=== PATIENT | male | born 2000 | race African-American/Black ===

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

== ENCOUNTER 2020-08-14 12:05 | Emergency (ER) | payer OTHER ==
[~2020-08-14] VITALS: Ht 185.4 cm; Wt 66.0 kg
--- NOTE | 2020-08-14 12:22 | PHYS DOC ---
Past Medical History Past Medical History: Kidney Stone Additional Past Medical Histor: kidney stones Past Surgical History: Other Additional Past Surgical Histo: "KIDNEY STONE SX" Smoking Status: Never Smoker Alcohol Use: None Drug Use: None General Adult EDM: Chief Complaint: FLANK PAIN HPI: HPI: The history was obtained from the patient. Patient is a 20-year-old male with PMH kidney stone who presents with a chief complaint of right flank pain. Patient states he noticed sudden onset right flank pain 3 hours prior to arrival. He notes no nausea or vomiting. Denies any fevers. States this feels similar but less severe than his kidney stone that he developed 1 year ago. Denies any history of urologic intervention. Denies dysuria, hematuria, urgency void, or changes in his urinary output. Denies any abdominal pain. Denies any changes to his stool caliber or consistency. Denies syncope. Did try 400 mg ibuprofen 2 hours prior to arrival with minimal relief. Denies drug or alcohol abuse. States the pain is aching in nature and is difficult to find a position of comfort. No other complaints. Review of Systems: Review of Systems: Constitutional: Denies fever or chills. [] Eyes: Denies change in visual acuity. [] HENT: Denies nasal congestion or sore throat. [] Respiratory: Denies cough or shortness of breath. [] Cardiovascular: Denies chest pain or edema. [] GI: Right flank pain : Denies dysuria. [] Musculoskeletal: Denies back pain or joint pain. [] Integument: Denies rash. [] Neurologic: Denies headache, focal weakness or sensory changes. [] Endocrine: Denies polyuria or polydipsia. [] Lymphatic: Denies swollen glands. [] Psychiatric: Denies depression or anxiety. [] Heart Score: Risk Factors: Risk Factors: DM, Current or recent (<one month) smoker, HTN, HLP, family history of CAD, obesity. Risk Scores: Score 0 - 3: 2.5% MACE over next 6 weeks - Discharge Home Score 4 - 6: 20.3% MACE over next 6 weeks - Admit for Clinical Observation Score 7 - 10: 72.7% MACE over next 6 weeks - Early Invasive Strategies Allergies: Allergies: Allergies Coded Allergies Type Severity Reaction Last Updated Verified No Known Drug Allergies 03/04/18 No Physical Exam: PE: Constitutional: Well developed, well nourished, no acute distress, non-toxic appearance. [] HENT: Normocephalic, atraumatic, bilateral external ears normal, oropharynx moist, no oral exudates, nose normal. [] Eyes: PERRLA, EOMI, conjunctiva normal, no discharge. [] Neck: Normal range of motion, no tenderness, supple, no stridor. [] Cardiovascular:Heart rate regular rhythm, no murmur [] Lungs & Thorax: Bilateral breath sounds clear to auscultation [] Abdomen: Soft, nontender, nonacute abdomen. No involuntary guarding or rigidity noted. No acute peritonitis. No reproducible tenderness in the right lower quadrant. : Mild CVA tenderness. Circumcised. No testicular tenderness or swelling noted. Skin: Warm, dry, no erythema, no rash. [] Back: No tenderness, no CVA tenderness. [] Extremities: No tenderness, no cyanosis, no clubbing, ROM intact, no edema. [] Neurologic: Alert and oriented X 3, normal motor function, normal sensory function, no focal deficits noted. [] Psychologic: Affect normal, judgement normal, mood normal. [] Current Patient Data: Labs: Laboratory Tests Test 08/14/20 12:35 White Blood Count 11.0 x10^3/uL Red Blood Count 5.22 x10^6/uL Hemoglobin 16.7 g/dL Hematocrit 47.3 % Mean Corpuscular Volume 91 fL Mean Corpuscular Hemoglobin 32 pg Mean Corpuscular Hemoglobin Concent 35 g/dL Red Cell Distribution Width 12.7 % Platelet Count 333 x10^3/uL Neutrophils (%) (Auto) 79 % Lymphocytes (%) (Auto) 12 % Monocytes (%) (Auto) 5 % Eosinophils (%) (Auto) 3 % Basophils (%) (Auto) 0 % Neutrophils # (Auto) 8.7 x10^3/uL Lymphocytes # (Auto) 1.3 x10^3/uL Monocytes # (Auto) 0.6 x10^3/uL Eosinophils # (Auto) 0.3 x10^3/uL Basophils # (Auto) 0.0 x10^3/uL Urine Collection Type Unknown Urine Color [place] Urine Clarity Clear Urine pH 6.5 Urine Specific [place] 1.020 Urine Protein 100 mg/dL Urine Glucose (UA) Negative mg/dL Urine Ketones (Stick) Trace mg/dL Urine Blood Large Urine Nitrite Negative Urine Bilirubin Negative Urine Urobilinogen Dipstick 0.2 mg/dL Urine Leukocyte Esterase Small Urine RBC >40 /HPF Urine WBC 5-10 /HPF Urine Squamous Epithelial Cells Few /LPF Urine Bacteria Few /HPF Urine Mucus Slight /LPF Sodium Level 140 mmol/L Potassium Level 3.4 mmol/L Chloride Level 104 mmol/L Carbon Dioxide Level 32 mmol/L Anion Gap 4 Blood Urea Nitrogen 10 mg/dL Creatinine 1.0 mg/dL Estimated GFR (Cockcroft-Gault) 115.3 Glucose Level 95 mg/dL Calcium Level 9.4 mg/dL Current Medications Medications (Trade) Dose Ordered Sig/Tiana Route PRN Reason Start Time Stop Time Status Last Admin Dose Admin Ketorolac Tromethamine (Toradol 15mg Vial) 15 mg 1X ONCE IVP 08/14/20 12:30 08/14/20 12:31 DC 08/14/20 13:01 Vital Signs: Vital Signs Date Time Temp Pulse Resp B/P (MAP) Pulse Ox O2 Delivery O2 Flow Rate FiO2 08/14/20 12:13 97.7 84 15 146/91 (109) 99 Room Air 97.7 EKG: EKG: [] Radiology/Procedures: Radiology/Procedures: [facility] [id number] [place] [address] IMAGING REPORT Signed PATIENT: GEE VARELA ACCOUNT: [id number] : 2000 LOCATION: ER AGE: 20 SEX: M EXAM STATUS: PRE ER ORD. PHYSICIAN: IQRA GÓMEZ DO REASON: R flank pain PROCEDURE: CT ABDOMEN PELVIS WO CONTRAST EXAM: CT Abdomen and Pelvis with IV contrast INDICATION: Reason: R flank pain / Spl. Instructions: / History: TECHNIQUE: Multi-detector row CT images were acquired from the lung bases through the abdomen and pelvis with the use of IV contrast. Sagittal and coronal images were acquired from the transaxial data. All CT scans performed at this facility utilize dose optimization techniques as appropriate to the exam, including the following: Automated exposure control and adjustment of the mA and/or KV according to patient size (this includes techniques or standardized protocols for targeted exams where dose is indication/reason for exam). IV CONTRAST: Administered ORAL CONTRAST: Not administered COMPARISON: Noncontrast abdomen pelvis CT 08/20/2018 FINDINGS: Mild beam hardening artifact from overlying medical support equipment, including monitor leads , degrades detail. LOWER CHEST: Unremarkable LIVER: Unremarkable BILIARY SYSTEM: Gallbladder is unremarkable. Bile ducts are not dilated. PANCREAS: Unremarkable SPLEEN: Unremarkable ADRENALS: Unremarkable KIDNEYS & URETERS: Right hydronephrosis and hydroureter is present related to a 7 mm distal right ureteral stone (axial image 28 of series 2, coronal image 41 of series 4). Previously evident stone more proximally in the mid right ureter measuring 4 mm is no longer identified at that location. The left kidney is unremarkable. BLADDER: Unremarkable REPRODUCTIVE ORGANS: Enlarged prostate, now measuring approximately 6 cm compared with 4.8 cm previously. GASTROINTESTINAL: The stomach, small bowel, and colon are unremarkable. The appendix is normal. MESENTERY/PERITONEUM/RETROPERITONEUM: Unremarkable VASCULAR: Unremarkable LYMPH NODES: No adenopathy OSSEOUS & SOFT TISSUES: Unremarkable IMPRESSION: 1. Persistent or recurrent right hydronephrosis and hydroureter related to a right ureteral stone, now measuring 7 mm further down the ureter. 2. Interval enlargement of the prostate. Correlate clinically. Electronically signed by: Christi Rizo MD (08/14/2020 1:28 PM) [facility] [place] DICTATED and SIGNED BY: CHRISTI RIZO MD DATE: 08/14/20 1328 [] Course & Med Decision Making: Course & Med Decision Making Pertinent Labs and Imaging studies reviewed. (See chart for details) [] Patient is a comfortable appearing 20-year-old male who presents with chief complaint of right flank pain. Initial vital signs unremarkable. Exam noted above. CT imaging does reveal a persistent right-sided 7 mm kidney stone with some associated hydroureter. Kidney function normal. Urine without evidence of infection. Overall I do feel the patient is appropriate for close outpatient follow-up given his symptoms appear well controlled, he is tolerating p.o., afebrile, normal kidney function, no signs of infection . Patient states that he does have a urologist that he can follow-up with. Patient is agreeable to close outpatient follow-up. Return precautions discussed and understood. Instructed to follow-up with his primary care physician in 2 to 3 days. Stable for discharge home. Dragon Disclaimer: Dragon Disclaimer: This electronic medical record was generated, in whole or in part, using a voice recognition dictation system. Departure Departure Impression: Primary Impression: Kidney stone on right side Disposition: HOME, SELF-CARE Condition: STABLE Referrals: NO PCP (PCP) Patient Instructions: Kidney Stones Additional Instructions: Please follow-up with your urologist next week. Please follow-up with your primary care physician in the next 2 to 3 days per Justicifation of Admission Dx: Justifications for Admission: Justification of Admission Dx: N/A IQRA GÓMEZ DO Aug 14, 2020 12:22
[2020-08-14] MEDS ORDERED: KETOROLAC 15 MG/ML VIAL. IVP ONE (12:30)
[2020-08-14 12:53] LABS: BILIRUBIN,URINE NEGATIVE (NEG); CLARITY,URINE CLEAR; COLOR,URINE AMBER; NITRITE,URINE NEGATIVE (NEG); PH,URINE 6.5 (<5.0-8.0); PROTEIN,URINE 100 mg/dL (NEG-TRACE); UROBILINOGEN,URINE 0.2 mg/dL (0.2 mg/dL)
[2020-08-14 12:55] LABS: BASO % 0 % (0-3); EOS # 0.3 x10^3/uL (0.0-0.7); EOS % 3 % (0-3); HEMATOCRIT 47.3 % (39.0-53.0); HEMOGLOBIN 16.7 g/dL (13.0-17.5); LYMPH # 1.3 x10^3/uL (1.0-4.8); LYMPH % 12 % (24-48); MEAN CORPUSCULAR HEMOGLOBIN 32 pg (25-35); MEAN CORPUSCULAR HGB CONC 35 g/dL (31-37); MEAN CORPUSCULAR VOLUME 91 fL (79-100); MONO # 0.6 x10^3/uL (0.0-1.1); MONO % 5 % (0-9); NEUT # 8.7 x10^3/uL (1.8-7.7); NEUT % 79 % (31-73); PLATELET COUNT 333 x10^3/uL (140-400); RED BLOOD COUNT 5.22 x10^6/uL (4.30-5.70); RED CELL DISTRIBUTION WIDTH 12.7 % (11.5-14.5)
[2020-08-14 12:59] LABS: CALCIUM 9.4 mg/dL (8.5-10.1); GFR 115.3; POTASSIUM 3.4 mmol/L (3.5-5.1)
[2020-08-14 13:10] LABS: BACTERIA,URINE FEW /HPF (0-FEW); RBC,URINE >40 /HPF (0-2)
[2020-08-14 13:11] LABS: SQUAMOUS EPITHELIAL CELL,UR FEW /LPF
--- NOTE | 2020-08-14 13:32 | RAD ---
EXAM: CT Abdomen and Pelvis with IV contrast INDICATION: Reason: R flank pain / Spl. Instructions: / History: TECHNIQUE: Multi-detector row CT images were acquired from the lung bases through the abdomen and pelvis with the use of IV contrast. Sagittal and coronal images were acquired from the transaxial data. All CT scans performed at this facility utilize dose optimization techniques as appropriate to the exam, including the following: Automated exposure control and adjustment of the mA and/or KV according to patient size (this includes techniques or standardized protocols for targeted exams where dose is indication/reason for exam). IV CONTRAST: Administered ORAL CONTRAST: Not administered COMPARISON: Noncontrast abdomen pelvis CT 08/20/2018 FINDINGS: Mild beam hardening artifact from overlying medical support equipment, including monitor leads , degrades detail. LOWER CHEST: Unremarkable LIVER: Unremarkable BILIARY SYSTEM: Gallbladder is unremarkable. Bile ducts are not dilated. PANCREAS: Unremarkable SPLEEN: Unremarkable ADRENALS: Unremarkable KIDNEYS & URETERS: Right hydronephrosis and hydroureter is present related to a 7 mm distal right ureteral stone (axial image 28 of series 2, coronal image 41 of series 4). Previously evident stone more proximally in the mid right ureter measuring 4 mm is no longer identified at that location. The left kidney is unremarkable. BLADDER: Unremarkable REPRODUCTIVE ORGANS: Enlarged prostate, now measuring approximately 6 cm compared with 4.8 cm previously. GASTROINTESTINAL: The stomach, small bowel, and colon are unremarkable. The appendix is normal. MESENTERY/PERITONEUM/RETROPERITONEUM: Unremarkable VASCULAR: Unremarkable LYMPH NODES: No adenopathy OSSEOUS & SOFT TISSUES: Unremarkable IMPRESSION: 1. Persistent or recurrent right hydronephrosis and hydroureter related to a right ureteral stone, now measuring 7 mm further down the ureter. 2. Interval enlargement of the prostate. Correlate clinically. Electronically signed by: Mike Rizo MD (08/14/2020 1:28 PM) [facility] [place]
[2020-08-14 14:00] VITALS: BP 124/80
== END 2020-08-14 14:06 | disposition home or self-care (01) ==
LOC: ER 12:05
DX: N20.0 Calculus of kidney (principal); R10.31 Right lower quadrant pain; Z87.442 Personal history of urinary calculi; Z98.890 Other specified postprocedural states
CPT/HCPCS: 36415; 74176; 80048; 81001; 85025; 87086; 96374; 99284; J1885